=== PATIENT | male | born 1940 | race African-American/Black ===

== ENCOUNTER 2018-08-13 17:17 | Emergency (ER) | payer MEDICARE, OTHER ==
[~2018-08-13] VITALS: Ht 160 cm; Wt 59.0 kg
[2018-08-13] MEDS ORDERED: EPINEPHrine SYRINGE 1 MG/10 ML SYRINGE ONE (17:30)
--- NOTE | 2018-08-13 17:39 | PHYS DOC ---
Adult General Chief Complaint Chief Complaint: CPR/FULL ARREST HPI HPI Patient is a 77 year old male who brought in by EMS because of cardiac arrest. Patient had shortness of breath and was started on 2 L of facial mask by long-term staff. EMS reported the patient had severe respiratory distress and air hunger and had respiratory arrest witnessed by EMS and CPR was started at 1658 with a constant asystole. Patient was intubated prior to arrival to ER with 4 doses of epinephrine without response. Patient had fixed and dilated pupils at arrival to ER with no spontaneous respirations or cardiac activity without CPR after more than 20 minutes of CPR by EMS. Review of Systems Review of Systems Unable to obtain, CPR in progress Current Medications Current Medications Current Medications Medications (Trade) Dose Ordered Sig/Michelle Start Time Stop Time Status Last Admin Dose Admin Epinephrine HCl (EPINEPHrine SYRINGE) 1 mg STK-MED ONCE 08/13/18 17:30 08/14/18 12:25 DC Allergies Allergies Allergies Coded Allergies Type Severity Reaction Last Updated Verified No Known Drug Allergies 08/13/18 No Physical Exam Physical Exam Constitutional: Unresponsive HENT: Normocephalic, atraumatic Eyes: Fixed dilated bilateral pupils Neck: Atraumatic Cardiovascular: No spontaneous cardiac activity without CPR Lungs & Thorax: No spontaneous emesis. Patient without CPR Abdomen: Atraumatic Neurologic: Unresponsive Current Patient Data Vital Signs Vital Signs Date Time Temp Pulse Resp B/P (MAP) Pulse Ox O2 Delivery O2 Flow Rate FiO2 08/13/18 17:17 12 Bag Valve Mask 15.0 EKG EKG [] Radiology/Procedures Radiology/Procedures [] Course & Med Decision Making Course & Med Decision Making Evaluation of patient in ER showed 77-year-old male patient resident of long-term brought in because of cardio- respiratory arrest. CPR was in progress for more than 20 minutes prior ER to arrival to ER without any response. Patient had fixed pupils. Patient had 1 dose of epinephrine in ER with asystole on monitor without spontaneous pulse without CPR. CPR was stopped at 1723. Dragon Disclaimer Dragon Disclaimer This electronic medical record was generated, in whole or in part, using a voice recognition dictation system. Departure Departure Impression: Primary Impression: Cardiorespiratory arrest Disposition: 20 (1723) Condition: URBANO DAVIS MD Aug 13, 2018 17:39
== END 2018-08-13 19:58 | disposition expired ==
LOC: ER 17:17
DX: I46.9 Cardiac arrest, cause unspecified (principal); J80 Acute respiratory distress syndrome
CPT/HCPCS: 31500; 51702; 92950; 99285; J0171